=== PATIENT | male | born 1975 | race Caucasian/White ===

== ENCOUNTER → 2020-05-30 | Outpatient (CLI) | payer BC ==
[~2020-05-30] MED LIST: CETIRIZINE; LORTAB 5/500 501 TAB PO; MOTRIN800 MG PO; ZESTRIL40 MG PO; ZYRTEC 10MG10 MG PO
== END ==
LOC: ZCOL.LAB 14:11
DX: I10 Essential (primary) hypertension (principal); R06.00 Dyspnea, unspecified; R07.89 Other chest pain